=== PATIENT | male | born 1955 | race Two or more races ===

== ENCOUNTER 2020-07-24 22:55 | Emergency (ER) | payer SELFPAY ==
[~2020-07-24] VITALS: Ht 167.6 cm; Wt 90.9 kg
[2020-07-25] MEDS: SODIUM CHLORIDE 0.9% 1,000 ML IV ONE ×2 (00:21→01:11)
[2020-07-25 00:26] LABS: COVID AG,FIA SOURCE NASOPHARYNGEAL
[2020-07-25] MEDS: ASPIRIN 81 MG CHEWABLE TABLET PO ONE (00:28)
[2020-07-25] MEDS: NITROGLYCERIN 2% (1 GM=INCH) PACKET TP ONE (00:28)
[2020-07-25] MEDS: DEXAMETHASONE SOD PHOS 4 MG/ML 5 ML VIAL IVP ONE (00:29)
[2020-07-25 00:30] LABS: BASOPHILS % (AUTO) 0.2 % (0.0-2.0); EOSINOPHILS % (AUTO) 0.2 % (1.0-6.0); HEMATOCRIT 35.4 % (41-53); HEMOGLOBIN 11.2 g/dL (13.5-17.5); LYMPHOCYTES # (AUTO) 1.7 K/uL (1.0-4.8); LYMPHOCYTES % (AUTO) 16.3 % (22.0-44.0); MEAN CORPUSCULAR HEMOGLOBIN 26.2 pg (26.0-34.0); MEAN CORPUSCULAR HGB CONC 31.6 G/dL (31.0-37.0); MEAN CORPUSCULAR VOLUME 83 fL (80-100); MONOCYTES # (AUTO) 0.8 K/uL (0.1-1.0); MONOCYTES % (AUTO) 7.1 % (2.0-9.0); NEUTROPHILS # (AUTO) 8.1 K/uL (1.8-7.7); NEUTROPHILS % (AUTO) 76.2 % (40.0-70.0); PLATELET COUNT (AUTO) 292 K/uL (150-450); RED BLOOD CELL COUNT(AUTO) 4.28 MIL/uL (4.50-5.90)
[2020-07-25 00:51] LABS: ANION GAP 11 mmol/L (8-16); CALCIUM, TOTAL 8.6 mg/dL (8.8-10.5); CARBON DIOXIDE 22 mmol/L (22-29); CHLORIDE 101 mmol/L (98-107); CREATININE 1.27 mg/dL (0.60-1.30); GLOMERULAR FILTR. RATE CALC 57 mL/min (>60); GLUCOSE,RANDOM 203 mg/dL (70-110); POTASSIUM 3.9 mmol/L (3.5-5.1); SODIUM SERUM 134 mmol/L (136-145); UREA NITROGEN, BLOOD 17 mg/dL (7-18)
[2020-07-25 01:03] LABS: LACTIC ACID 3.5 mmol/L (0.4-2.0)
[2020-07-25 01:05] LABS: B-TYPE NATRIURETIC PEPTIDE 964 pg/mL (0-100)
[2020-07-25 01:17] LABS: ALANINE AMINOTRANSFERASE 29 U/L (12-78); ALBUMIN 3.4 g/dL (3.4-5.0); ALKALINE PHOSPHATASE 95 U/L (46-116); ASPARTATE AMINOTRANSFERASE 32 U/L (15-37); BILIRUBIN,TOTAL 0.5 mg/dL (0.1-1.0); C-REACTIVE PROTEIN QUANT 4.36 mg/dL (0.00-0.30); FERRITIN 30 ng/mL (26-388); LACTATE DEHYDROGENASE 469 U/L (85-227); LIPASE 68 U/L (73-393); TOTAL PROTEIN, SERUM 7.9 g/dL (6.4-8.2)
[2020-07-25 01:47] LABS: INFLUENZA TYPE A NEGATIVE FOR TYPE A (NEGATIVE); INFLUENZA TYPE B NEGATIVE FOR TYPE B (NEGATIVE)
[2020-07-25 02:03] LABS: GLUCOSE,POINT OF CARE 132 MG/DL (70-110)
[2020-07-25 02:16] VITALS: BP 155/105
[2020-07-25] MEDS: MORPHINE SULFATE 4 MG/ML SYRINGE IVP ONE (02:16)
[2020-07-25] MEDS: LABETALOL HCL 5 MG/ML 20 ML VIAL IVP ONE (02:16)
[2020-07-25] MEDS: ONDANSETRON HCL 4 MG/2 ML VIAL IVP ONE (02:16)
== END 2020-07-25 02:32 | disposition short-term general hospital (02) ==
LOC: EMS 22:55
DX: I21.3 ST elevation (STEMI) myocardial infarction of unspecified site (principal); Z20.822 Contact with and (suspected) exposure to COVID-19
CPT/HCPCS: 71045; 80053; 82728; 82962; 83605; 83615; 83690; 83735; 83880; 84145; 84484; 85025; 85379; 86140; 87040; 87426; 87804; 93005 ×2; 96361; 96374; 96375; 99291; J1100; J2270; J2405; J3490; J7030; U0003; 82948